=== PATIENT | male | born 1960 | race Caucasian/White ===

== ENCOUNTER 2018-01-27 08:53 | Inpatient (IN) | payer OTHER ==
[~2018-01-27] VITALS: Ht 172.7 cm; Wt 111.6 kg
[~2018-01-27 08:53] MED LIST: MULT-506 PO
[2018-01-27] MEDS ORDERED: MoRPHine SULFATE 10 MG/ML CARP/VIAL IV STA (09:21)
[2018-01-27] MEDS ORDERED: ONDANSETRON INJ 2 MG/ML 2 ML VIAL IV STA (09:21)
[2018-01-27] MEDS ORDERED: SODIUM CHLORIDE 0.9% 1000ML 1,000 ML IV STA (09:21)
[2018-01-27] MEDS ORDERED: MoRPHine SULFATE 2 MG/ML CARP ONE (09:31)
[2018-01-27] MEDS ORDERED: MoRPHine SULFATE 4 MG/ML 1 ML CARP\\VIAL ONE (09:32)
[2018-01-27 09:37] LABS: BASO % 0.1 %; BASO ABS # 0.02 K/uL (0-0.2); EOS % 1.2 %; EOS ABS # 0.18 K/uL (0-0.5); HEMATOCRIT 43.6 % (42-52); HEMOGLOBIN 15.4 g/dL (14.0-18.0); IG# 0.06 K/uL (0.00-0.02); LYMPH % 16.3 %; LYMPH ABS # 2.52 K/uL (1.2-3.4); MEAN CELL VOLUME 90.1 fL (80-100); MEAN CORPUSCULAR HEMOGLOBIN 31.8 pg (25-34); MEAN CORPUSCULAR HGB CONC 35.3 g/dl (32-36); MEAN PLATELET VOLUME 9.1 fL (7.4-10.4); MONO % 10.1 %; MONO ABS # 1.56 K/uL (0.11-0.59); NEUT % 71.9 %; NEUT ABS # 11.12 K/uL (1.4-6.5); PLATELET COUNT 254 K/uL (130-400); RED CELL DISTRIBUTION WIDTH CV 13.1 % (11.5-14.5); RED CELL DISTRIBUTION WIDTH SD 43.2 fL (36.4-46.3); WHITE BLOOD COUNT 15.46 K/uL (4.8-10.8)
[2018-01-27 10:02] LABS: ALBUMIN 3.5 gm/dl (3.4-5.0); CALCIUM 9.4 mg/dl (8.5-10.1); CREATININE 1.02 mg/dl (0.60-1.40); POTASSIUM 3.9 mmol/L (3.5-5.1)
[2018-01-27 10:04] LABS: TOTAL PROTEIN 7.9 gm/dl (6.4-8.2)
[2018-01-27] MEDS ORDERED: CEFTRIAXONE SOD INJ 1 GM ADDVIAL IV STA (10:56)
--- NOTE | 2018-01-27 11:34 | DIAGNOSTIC IMAGING REPORT ---
CT SCAN OF THE ABDOMEN AND PELVIS WITH IV CONTRAST CLINICAL HISTORY: Generalized abdominal pain. Urinary tract infection. COMPARISON STUDY: Abdominal CT dated 06/12/2016. TECHNIQUE: Following the IV administration of 116 cc of Optiray 320, CT scan of the abdomen and pelvis is performed from the lung bases to the proximal femora. Images are reviewed in the axial, sagittal, and coronal planes. IV contrast was administered without complication. A dose lowering technique was utilized adhering to the principles of ALARA. CT DOSE: 1024.97 mGycm FINDINGS: Lung bases: The heart is normal in size and without pericardial effusion. There is scarring versus atelectasis seen at both lung bases. No airspace consolidation or pleural effusion is identified. There is a tiny hiatal hernia. Liver: The contrast-enhanced liver is enlarged, measuring 19.9 cm in length. The liver demonstrates diffusely diminished attenuation suggesting mild steatosis. There is no intrahepatic biliary ductal dilatation. The hepatic veins and portal veins are patent. Gallbladder: Unremarkable. Spleen: Normal in size and attenuation. Pancreas: Unremarkable. Adrenal glands: Unremarkable. Kidneys: The contrast enhanced kidneys are normal in size and without hydronephrosis. The kidneys enhance symmetrically. Bilateral renal cysts measure up to 2.4 cm. Additional subcentimeter cortical hypodensities also likely represent cysts but are too small for definitive characterization. There is a staghorn calculus in the interpolar right kidney. This measures up to 2.9 cm in aggregate dimension. There is a circumaortic left renal vein. Mild urothelial thickening suggested in the renal pelvis bilaterally with surrounding peripelvic and perinephric inflammatory change. Abdominal vasculature: The abdominal aorta is normal in course and caliber noting mild to moderate atherosclerotic calcification. Bowel: There are postoperative changes from sigmoid colon resection with colocolonic anastomosis. A small bowel anastomosis is seen in the right lower quadrant with evidence of a right lower quadrant urostomy. No bowel obstruction is seen. There are scattered colonic diverticula without CT evidence of acute diverticulitis. The appendix is well-visualized and normal. Peritoneum: There is no intraperitoneal free air or abdominal ascites. There is a small fat-containing umbilical hernia. Lymphadenopathy: There is a 2.4 x 1.5 cm retrocaval lymph node seen on image #142. Additional prominent retroperitoneal nodes are identified. An aortocaval node on image #168 measures 10 mm in short axis. There is no upper abdominal, mesenteric, pelvic sidewall, or inguinal adenopathy. Pelvic viscera: The bladder and prostate are surgically absent. Surgical clips are noted in the pelvis. Skeletal structures: The skeletal structures are osteopenic. Mild spondylotic change is observed in the lumbar spine. No lytic or blastic lesions are seen. IMPRESSION: 1. There are postoperative changes from cystectomy and prostatectomy with a diverting right lower quadrant urostomy. 2. There is no hydronephrosis. 3. A staghorn calculus is identified in the right kidney. 4. Mild urothelial thickening is suggested in the renal pelvis bilaterally with surrounding peripelvic and perinephric stranding. The appearance suggests urinary tract infection. Clinical correlation will be required. 5. There is an enlarged retrocaval lymph node as above, which has modestly increased in size from 2016. Additional prominent retroperitoneal nodes are identified. These are pathologically indeterminant and may be reactive. Attention at follow-up is recommended. 6. Hepatomegaly and hepatic steatosis. 7. Additional findings as above. Electronically signed by: Antwan Vyas M.D. 01/27/2018 11:33 AM Dictated Date/Time: 01/27/2018 11:22 AM
--- NOTE | 2018-01-27 13:23 | Urology Consultation ---
History General Date of Service: Jan 27, 2018. Chief Complaint: back pain, stoma pain Primary Care Physician: No Doctor, Assigned Pt seen a urologist before?: Yes (Dr. Buddy Howell ) If yes, why?: bladder cancer History of Present Illness 57 yo [place] male with hx of bladder and colon cancer s/p colectomy and cystectomy presents to the ED with his with c/o back pain and stoma pain. The pt is deaf, and translates for him. Urostomy draining clear, yellow urine this afternoon. UA obtained from clean drainage bag replaced this morning shows pyuria, blood, and bacteria. Pt's denies fevers at home. He is afebrile on admission with a white count of 15.46. Cr is 1.02. CT showing a right partial staghorn calculus and perinephric stranding without hydronephrosis. Imaging Imaging: CT Laboratory Last 24 Hours Test 01/27/18 09:25 White Blood Count 15.46 K/uL Red Blood Count 4.84 M/uL Hemoglobin 15.4 g/dL Hematocrit 43.6 % Mean Corpuscular Volume 90.1 fL Mean Corpuscular Hemoglobin 31.8 pg Mean Corpuscular Hemoglobin Concent 35.3 g/dl Platelet Count 254 K/uL Mean Platelet Volume 9.1 fL Neutrophils (%) (Auto) 71.9 % Lymphocytes (%) (Auto) 16.3 % Monocytes (%) (Auto) 10.1 % Eosinophils (%) (Auto) 1.2 % Basophils (%) (Auto) 0.1 % Neutrophils # (Auto) 11.12 K/uL Lymphocytes # (Auto) 2.52 K/uL Monocytes # (Auto) 1.56 K/uL Eosinophils # (Auto) 0.18 K/uL Basophils # (Auto) 0.02 K/uL RDW Standard Deviation 43.2 fL RDW Coefficient of Variation 13.1 % Immature Granulocyte % (Auto) 0.4 % Immature Granulocyte # (Auto) 0.06 K/uL Urine Color YELLOW Urine Appearance CLOUDY Urine pH 7.0 Urine Specific [place] 1.010 Urine Protein 1+ Urine Glucose (UA) NEG Urine Ketones NEG Urine Occult Blood 3+ Urine Nitrite NEG Urine Bilirubin NEG Urine Urobilinogen NEG Urine Leukocyte Esterase LARGE Urine RBC 10-30 /hpf Urine WBC >30 /hpf Urine Epithelial Cells 5-10 /lpf Urine Bacteria 2+ Urine Hyaline Casts 1-5 /lpf Sodium Level 137 mmol/L Potassium Level 3.9 mmol/L Chloride Level 106 mmol/L Carbon Dioxide Level 24 mmol/L Anion Gap 7.0 mmol/L Blood Urea Nitrogen 14 mg/dl Creatinine 1.02 mg/dl Est Creatinine Clear Calc Drug Dose 95.7 ml/min Estimated GFR () 93.5 Estimated GFR (Non- 80.6 BUN/Creatinine Ratio 13.6 Random Glucose 111 mg/dl Calcium Level 9.4 mg/dl Total Bilirubin 0.8 mg/dl Direct Bilirubin 0.2 mg/dl Aspartate Amino Transf (AST/SGOT) 9 U/L Alanine Aminotransferase (ALT/SGPT) 19 U/L Alkaline Phosphatase 88 U/L Total Protein 7.9 gm/dl Albumin 3.5 gm/dl Lipase 71 U/L Past History cancer (bladder), cancer - colon, other (pt is deaf, sleep apnea) Past Surgical History: colectomy (total ), other (cystectomy ) Family History non-contributory Social History Hx Tobacco Use In Past Year?: No Smoking: other (current everyday smoker) Marital status: Housing status: lives with family Occupation status: employed Allergies Coded Allergies: Penicillins (Unverified Allergy, Intermediate, Itching, swelling, 01/27/18) Medications Home Medications: Home Meds and Scripts Medications Dose Route/Sig Max Daily Dose Days Date Category No Active Prescriptions or Reported Medications Rx Review of Systems Review of Systems Constitutional: No fever, No chills Eyes: No double vision Neurological: No dizzy Endocrine: No excessive thirst Gastrointestinal: No abdominal pain, No nausea, No vomiting Cardiovascular: No chest pain Respiratory: No shortness of breath Skin: No rash Musculoskeletal: + back pain Male : No blood in urine Physical Exam Vital Signs: Vital Signs Past 12 Hours Date Time Temp Pulse Resp B/P (MAP) Pulse Ox O2 Delivery O2 Flow Rate FiO2 01/27/18 11:01 67 18 130/80 98 Room Air 01/27/18 09:02 37.0 77 19 128/78 95 Room Air Physical Exam: General Appearance: no apparent distress Eyes: bilateral eyes normal inspection ENT: + pertinent finding (pt is deaf ) Neck: no JVD Respiratory/Chest: no respiratory distress, no accessory muscle use Cardiovascular: no JVD Gastrointestinal: Abdomen: pertinent finding (stoma is beefy red on appearance ) Extremities: normal inspection Neurologic/Psychiatric: alert, normal mood/affect, oriented x 3 Skin: normal color Assessment & Plan Assessment & Plan A/P: UTI, hx of bladder cancer, nephrolithiasis AFVSS. Pt to be admitted by the hospitalist service. Recommend he remain inpatient until culture sensitivities return so that he can be transitioned to the appropriate oral abx prior to d/c home. No urgent need for stone management at this time, but will need to discuss outpatient management as this can be a potential source for infection. Thanks for the consult. Will continue to follow along with primary service. The pt was seen and examined with Dr. Chaudhary this afternoon.
[2018-01-27 13:46] VITALS: O2SAT 99; Ht 172.7 cm; Wt 111.6 kg
[2018-01-27] MEDS ORDERED: HYDROmorphone INJ 0.5 MG/0.5 ML SYR IV ONE (14:15)
--- NOTE | 2018-01-27 14:27 | EMERGENCY ROOM VISIT NOTE ---
History Report prepared by Vivian: Harpreet Ross Under the Supervision of: Dr. Edgar Sanchez D.O. First contact with patient: 09:09 Chief Complaint: FLANK PAIN Stated Complaint: KIDNEY INFECTION - SORE STOMA AREA History of Present Illness The patient is completely deaf and there is a language barrier, therefore this HPI was acquired from his . The patient is a 57 year old male who presents to the Emergency Room with complaints of worsening right sided lower back pain and right lower abdominal pain that began Wednesday, 3 days ago. The patient states that he started to feel unwell on Wednesday, but his pain worsened significantly this morning. He had a difficult time describing his pain, but denies that anything improves/worsens his pain. He denies any associated vomiting, diarrhea, or cough. The notes that he was diagnosed with a Kidney Infection in November and that this pain feels similar to that previous episode. The patient's right lower abdominal pain is localized around his stoma bag. The stoma is in place due to a past colectomy and bladder removal secondary to cancer. The notes that they changed the stoma bag this morning at 0730. He denies any other headache, change in vision, fevers, chest pain, shortness of breath, nausea, vomiting, diarrhea, pain with urination, and melena. Source of History: patient, spouse/significant other Onset: 3 days ago Position: back (lower, right) Quality: other (Unable to describe) Timing: worsening Modifying Factors (Worsening): other (n/a) Modifying Factors (Relieving): other (n/a ) Associated Symptoms: + abdominal pain (RLQ pain) Review of Systems See HPI for pertinent positives & negatives. A total of 10 systems reviewed and were otherwise negative. Past Medical & Surgical Hx of Sleep Apnea Social History Smoking Status: Current Every Day Smoker Drug Use: none Marital Status: Housing Status: lives with significant other Occupation Status: employed Current/Historical Medications No Active Prescriptions or Reported Meds Allergies Coded Allergies: Penicillins (Unverified Allergy, Intermediate, Itching, swelling, 01/27/18) Physical Exam Vital Signs Date Time Temp Pulse Resp B/P (MAP) Pulse Ox O2 Delivery O2 Flow Rate FiO2 01/27/18 13:46 99 Room Air 01/27/18 13:00 67 14 134/78 99 Room Air 01/27/18 11:01 67 18 130/80 98 Room Air 01/27/18 09:02 37.0 77 19 128/78 95 Room Air Physical Exam GENERAL: Sitting up in bed, alert, well appearing, well nourished, no distress, non-toxic EYE EXAM: normal conjunctiva. OROPHARYNX: no exudate, no erythema, lips, buccal mucosa, and tongue normal and mucous membranes are moist NECK: supple, no nuchal rigidity, no adenopathy, non-tender LUNGS: Clear to auscultation. Normal chest wall mechanics HEART: no murmurs, S1 normal and S2 normal ABDOMEN: abdomen soft, non-tender, normo-active bowel sounds, no masses, no rebound or guarding. There is a urostomy located in the right mid to lower quadrant, yellow urine is present in the bag. Urostomy is pink, well perfused, there is no surrounding discharge. BACK: Back is symmetrical on inspection and there is no deformity, no midline tenderness, no CVA tenderness. There is faint tenderness in the right mid to upper paraspinal region. SKIN: no rashes and no bruising UPPER EXTREMITIES: upper extremities are grossly normal. LOWER EXTREMITIES: No pitting edema. NEURO EXAM: Normal sensorium, cranial nerves II-XII grossly intact, normal speech, no gross weakness of arms, no gross weakness of legs. Medical Decision & Procedures ER Provider Diagnostic Interpretation: Radiology results as stated below per my review and the radiologist's interpretation: CT SCAN OF THE ABDOMEN AND PELVIS WITH IV CONTRAST CLINICAL HISTORY: Generalized abdominal pain. Urinary tract infection. COMPARISON STUDY: Abdominal CT dated 06/12/2016. TECHNIQUE: Following the IV administration of 116 cc of Optiray 320, CT scan of the abdomen and pelvis is performed from the lung bases to the proximal femora. Images are reviewed in the axial, sagittal, and coronal planes. IV contrast was administered without complication. A dose lowering technique was utilized adhering to the principles of ALARA. CT DOSE: 1024.97 mGycm FINDINGS: Lung bases: The heart is normal in size and without pericardial effusion. There is scarring versus atelectasis seen at both lung bases. No airspace consolidation or pleural effusion is identified. There is a tiny hiatal hernia. Liver: The contrast-enhanced liver is enlarged, measuring 19.9 cm in length. The liver demonstrates diffusely diminished attenuation suggesting mild steatosis. There is no intrahepatic biliary ductal dilatation. The hepatic veins and portal veins are patent. Gallbladder: Unremarkable. Spleen: Normal in size and attenuation. Pancreas: Unremarkable. Adrenal glands: Unremarkable. Kidneys: The contrast enhanced kidneys are normal in size and without hydronephrosis. The kidneys enhance symmetrically. Bilateral renal cysts measure up to 2.4 cm. Additional subcentimeter cortical hypodensities also likely represent cysts but are too small for definitive characterization. There is a staghorn calculus in the interpolar right kidney. This measures up to 2.9 cm in aggregate dimension. There is a circumaortic left renal vein. Mild urothelial thickening suggested in the renal pelvis bilaterally with surrounding peripelvic and perinephric inflammatory change. Abdominal vasculature: The abdominal aorta is normal in course and caliber noting mild to moderate atherosclerotic calcification. Bowel: There are postoperative changes from sigmoid colon resection with colocolonic anastomosis. A small bowel anastomosis is seen in the right lower quadrant with evidence of a right lower quadrant urostomy. No bowel obstruction is seen. There are scattered colonic diverticula without CT evidence of acute diverticulitis. The appendix is well-visualized and normal. Peritoneum: There is no intraperitoneal free air or abdominal ascites. There is a small fat-containing umbilical hernia. Lymphadenopathy: There is a 2.4 x 1.5 cm retrocaval lymph node seen on image #142. Additional prominent retroperitoneal nodes are identified. An aortocaval node on image #168 measures 10 mm in short axis. There is no upper abdominal, mesenteric, pelvic sidewall, or inguinal adenopathy. Pelvic viscera: The bladder and prostate are surgically absent. Surgical clips are noted in the pelvis. Skeletal structures: The skeletal structures are osteopenic. Mild spondylotic change is observed in the lumbar spine. No lytic or blastic lesions are seen. IMPRESSION: 1. There are postoperative changes from cystectomy and prostatectomy with a diverting right lower quadrant urostomy. 2. There is no hydronephrosis. 3. A staghorn calculus is identified in the right kidney. 4. Mild urothelial thickening is suggested in the renal pelvis bilaterally with surrounding peripelvic and perinephric stranding. The appearance suggests urinary tract infection. Clinical correlation will be required. 5. There is an enlarged retrocaval lymph node as above, which has modestly increased in size from 2016. Additional prominent retroperitoneal nodes are identified. These are pathologically indeterminant and may be reactive. Attention at follow-up is recommended. 6. Hepatomegaly and hepatic steatosis. 7. Additional findings as above. Electronically signed by: Antwan Vyas M.D. 01/27/2018 11:33 AM Dictated Date/Time: 01/27/2018 11:22 AM Laboratory Results 01/27/18 09:25 Red Blood Count 4.84, Mean Corpuscular Volume 90.1, Mean Corpuscular Hemoglobin 31.8, Mean Corpuscular Hemoglobin Concent 35.3, Mean Platelet Volume 9.1, Neutrophils (%) (Auto) 71.9, Lymphocytes (%) (Auto) 16.3, Monocytes (%) (Auto) 10.1, Eosinophils (%) (Auto) 1.2, Basophils (%) (Auto) 0.1, Neutrophils # (Auto ) 11.12, Lymphocytes # (Auto) 2.52, Monocytes # (Auto) 1.56, Eosinophils # (Auto ) 0.18, Basophils # (Auto) 0.02 01/27/18 09:25 Test 01/27/18 09:25 White Blood Count 15.46 K/uL (4.8-10.8) Red Blood Count 4.84 M/uL (4.7-6.1) Hemoglobin 15.4 g/dL (14.0-18.0) Hematocrit 43.6 % (42-52) Mean Corpuscular Volume 90.1 fL (80-100) Mean Corpuscular Hemoglobin 31.8 pg (25-34) Mean Corpuscular Hemoglobin Concent 35.3 g/dl (32-36) Platelet Count 254 K/uL (130-400) Mean Platelet Volume 9.1 fL (7.4-10.4) Neutrophils (%) (Auto) 71.9 % Lymphocytes (%) (Auto) 16.3 % Monocytes (%) (Auto) 10.1 % Eosinophils (%) (Auto) 1.2 % Basophils (%) (Auto) 0.1 % Neutrophils # (Auto) 11.12 K/uL (1.4-6.5) Lymphocytes # (Auto) 2.52 K/uL (1.2-3.4) Monocytes # (Auto) 1.56 K/uL (0.11-0.59) Eosinophils # (Auto) 0.18 K/uL (0-0.5) Basophils # (Auto) 0.02 K/uL (0-0.2) RDW Standard Deviation 43.2 fL (36.4-46.3) RDW Coefficient of Variation 13.1 % (11.5-14.5) Immature Granulocyte % (Auto) 0.4 % Immature Granulocyte # (Auto) 0.06 K/uL (0.00-0.02) Urine Color YELLOW Urine Appearance CLOUDY (CLEAR) Urine pH 7.0 (4.5-7.5) Urine Specific [place] 1.010 (1.000-1.030) Urine Protein 1+ (NEG) Urine Glucose (UA) NEG (NEG) Urine Ketones NEG (NEG) Urine Occult Blood 3+ (NEG) Urine Nitrite NEG (NEG) Urine Bilirubin NEG (NEG) Urine Urobilinogen NEG (NEG) Urine Leukocyte Esterase LARGE (NEG) Urine RBC 10-30 /hpf (0-4) Urine WBC >30 /hpf (0-5) Urine Epithelial Cells 5-10 /lpf (0-5) Urine Bacteria 2+ (NEG) Urine Hyaline Casts 1-5 /lpf (0-5) Anion Gap 7.0 mmol/L (3-11) Est Creatinine Clear Calc Drug Dose 95.7 ml/min Estimated GFR () 93.5 Estimated GFR (Non- 80.6 BUN/Creatinine Ratio 13.6 (10-20) Calcium Level 9.4 mg/dl (8.5-10.1) Total Bilirubin 0.8 mg/dl (0.2-1) Direct Bilirubin 0.2 mg/dl (0-0.2) Aspartate Amino Transf (AST/SGOT) 9 U/L (15-37) Alanine Aminotransferase (ALT/SGPT) 19 U/L (12-78) Alkaline Phosphatase 88 U/L (45-117) Total Protein 7.9 gm/dl (6.4-8.2) Albumin 3.5 gm/dl (3.4-5.0) Lipase 71 U/L (73-393) Laboratory results per my review. Medications Administered Medications (Trade) Dose Ordered Sig/Olaf Route Start Time Stop Time Status Last Admin Dose Admin Sodium Chloride 1,000 ml @ 999 mls/hr Q1H1M STAT IV 01/27/18 09:21 01/27/18 10:21 DC 01/27/18 09:34 999 MLS/HR Ondansetron HCl (Zofran Inj) 4 mg NOW STAT IV 01/27/18 09:21 01/27/18 09:23 DC 01/27/18 09:34 4 MG Morphine Sulfate (MoRPHine SULFATE INJ) 2 mg STK-MED ONCE .ROUTE 01/27/18 09:31 01/27/18 09:32 DC 01/27/18 09:35 2 MG Morphine Sulfate (MoRPHine SULFATE INJ) 4 mg STK-MED ONCE .ROUTE 01/27/18 09:32 01/27/18 09:33 DC 01/27/18 09:35 4 MG Ceftriaxone Sodium (Rocephin Inj) 1 gm NOW STAT IV 01/27/18 10:56 01/27/18 10:57 DC 01/27/18 11:25 1 GM ED Course ED COURSE: Vital signs were reviewed and showed normal vitals. The patients medical record was reviewed The above diagnostic studies were performed and reviewed. ED treatments and interventions as stated above. 0913: The patient was evaluated in room B8. A complete history and physical examination was performed. 0921: Ordered Zofran 4 mg IV, Morphine Sulfate 6 mg IV, Sodium Chloride 1000 mL @ 999 mL/hr IV. 0931: Ordered Morphine Sulfate 4 mg IV. 1056: Ordered Rocephin 1 gm IV. 1212: I discussed the case with Dr. Savannah Parry - Urology. She states that she will evaluate the case and call me back. 1218: I discussed the case with Dr. Chaudhary - Urology. He will come to the department to evaluate the patient. 1306: Dr. Chaudhary stopped by and informed me that they will admit the patient. 1317: Upon reevaluation, the patient is resting in bed.I discussed my findings with the patient and his , and they understands and agrees with the treatment plan. Based on the patients age, coexisting illnesses, exam and lab findings the decision to treat as an inpatient was made. The patient remained stable while under my care. The patient will be evaluated for further management. Medical Decision Differential diagnoses includes but is not limited to gastritis, peptic ulcer disease, GERD, gallbladder disease, pancreatitis, small bowel obstruction, acute coronary syndrome, pericarditis, ischemic bowel, irritable bowel disease, irritable bowel syndrome, appendicitis, diverticulitis, malignancy, hernia, urinary tract infection, torsion, perforation, trauma, infectious. Patient is a 57-year-old male with a previous history of bladder resection with urostomy in the right lower quadrant that presents to ER for back/flank pain. Has been feeling hot and cold. He does have a leukocytosis of 16,000. UA is infected. CT shows bilateral pyelonephritis. Patient was evaluated by nephrology at bedside. He was given IV antibiotics and fluids. He was given multiple doses of IV narcotics. He was admitted to internal medicine for further workup of his bilateral pyelonephritis. Medication Reconcilliation Current Medication List: was personally reviewed by me Blood Pressure Screening Patient's blood pressure: Normal blood pressure Consults Time Called: 1209 Consulting Physician: Dr. Savannah Bernabe Returned Call: [phone] I discussed the case with Dr. Savannah Bernabe. She states that she will evaluate the case and call me back. Additional Consults: Time Called: 1218 Consulted Physician: Dr. Jet Bernabe Returned Call: [phone] Additional Comments: I discussed the case with Dr. Jet Bernabe. He will come to the department to evaluate the patient. Impression Primary Impression: Pyelonephritis Scribe Attestation The scribe's documentation has been prepared under my direction and personally reviewed by me in its entirety. I confirm that the note above accurately reflects all work, treatment, procedures, and medical decision making performed by me. Departure Information Dispostion Being Evaluated By Hospitalist (urology) Prescriptions No Active Prescriptions or Reported Meds Referrals No Doctor, Assigned (PCP) Patient Instructions My [facility]
[2018-01-27] MEDS ORDERED: MoRPHine SULFATE 4 MG/ML 1 ML CARP\\VIAL IV PRN (14:30)
[2018-01-27] MEDS ORDERED: ONDANSETRON INJ 2 MG/ML 2 ML VIAL IV PRN (14:30)
--- NOTE | 2018-01-27 14:43 | History and Physical ---
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 He was treated with intavesical chemotherapy and tranurethral resection of th bladder. He is deaf at baseline and his communicates for him. Pt has c/o right sided back pain and stoma pain which began yesterday. He denies any fever, but notes he has been chilled for the past few days. He has been tolerating po intake well, no decrease in fluids. UA obtained from new clean stoma bag indicates pyuria, blood and bacteria. He was started on ceftriaxone in the ER. Currently afebrile with stable vitals signs. CT showing a right partial staghorn calculus and perinephric stranding without hydronephrosis. Past Medical/Surgical History Medical Problems: (1) Adenocarcinoma of bladder (2) BPH (benign prostatic hyperplasia) (3) Colon cancer (4) Leukocytosis (5) Nephrolithiasis Surgical Problems: (1) S/P colectomy Family History FH: CAD (coronary artery disease) FATHER, Onset:60 years & older No Family History of: FH: cancer Social History Smoking Status: Current Every Day Smoker Smokeless Tobacco Use: No Drug Use: none Marital Status: Housing status: lives with family Occupational Status: employed Allergies Coded Allergies: Penicillins (Unverified Allergy, Intermediate, Itching, swelling, 01/27/18) Home Medications Scheduled Ciprofloxacin Hcl (Cipro), 1 TAB PO BID Review of Systems Constitutional: + chills, + sweats, No fever, No fatigue Eyes: No redness, No diplopia ENT: No nasal symptoms, No sore throat Respiratory: No cough, No sputum, No wheezing, No shortness of breath Cardiovascular: No chest pain, No edema, No palpitations Abdomen: No pain, No nausea, No vomiting, No diarrhea, No constipation Musculoskeletal: No joint pain, No swelling, No calf pain Genitourinary - Male: + problem reported (slightly dark urine outs in past day , no blood, change bag surrounding stoma every 4-5 days. ), No hematuria Neurologic: No numbness/tingling Psychiatric: No depression symptoms, No anxiety Endocrine: No fatigue Integumentary: No rash, No itch Physical Exam Vital Signs Date Time Temp Pulse Resp B/P (MAP) Pulse Ox O2 Delivery O2 Flow Rate FiO2 01/27/18 13:46 99 Room Air 01/27/18 13:00 67 14 134/78 99 Room Air 01/27/18 11:01 67 18 130/80 98 Room Air 01/27/18 09:02 37.0 77 19 128/78 95 Room Air General Appearance: WD/WN, no apparent distress Head: normocephalic, atraumatic Eyes: PERRL, EOMI ENT: hearing grossly normal, pharynx normal Neck: supple, no JVD Respiratory/Chest: lungs clear, no respiratory distress, no accessory muscle use, + pertinent finding (on room air) Cardiovascular: regular rate, rhythm, no murmur, normal peripheral pulses Abdomen/GI: normal bowel sounds, non tender, soft, + pertinent finding (+ RLQ stoma red, no surrounding erythema, + slightly cloudy urine in bag, yellow.) Back: + right CVA tenderness Extremities/Musculoskelatal: no calf tenderness, no pedal edema Neurologic/Psych: alert, normal mood/affect, oriented x 3 Skin: normal color, warm/dry Diagnostics Laboratory Results Results Past 24 Hours Test 01/27/18 09:25 Range/Units White Blood Count 15.46 4.8-10.8 K/uL Red Blood Count 4.84 4.7-6.1 M/uL Hemoglobin 15.4 14.0-18.0 g/dL Hematocrit 43.6 42-52 % Mean Corpuscular Volume 90.1 80-100 fL Mean Corpuscular Hemoglobin 31.8 25-34 pg Mean Corpuscular Hemoglobin Concent 35.3 32-36 g/dl Platelet Count 254 130-400 K/uL Mean Platelet Volume 9.1 7.4-10.4 fL Neutrophils (%) (Auto) 71.9 % Lymphocytes (%) (Auto) 16.3 % Monocytes (%) (Auto) 10.1 % Eosinophils (%) (Auto) 1.2 % Basophils (%) (Auto) 0.1 % Neutrophils # (Auto) 11.12 1.4-6.5 K/uL Lymphocytes # (Auto) 2.52 1.2-3.4 K/uL Monocytes # (Auto) 1.56 0.11-0.59 K/uL Eosinophils # (Auto) 0.18 0-0.5 K/uL Basophils # (Auto) 0.02 0-0.2 K/uL RDW Standard Deviation 43.2 36.4-46.3 fL RDW Coefficient of Variation 13.1 11.5-14.5 % Immature Granulocyte % (Auto) 0.4 % Immature Granulocyte # (Auto) 0.06 0.00-0.02 K/uL Urine Color YELLOW Urine Appearance CLOUDY CLEAR Urine pH 7.0 4.5-7.5 Urine Specific [place] 1.010 1.000-1.030 Urine Protein 1+ NEG Urine Glucose (UA) NEG NEG Urine Ketones NEG NEG Urine Occult Blood 3+ NEG Urine Nitrite NEG NEG Urine Bilirubin NEG NEG Urine Urobilinogen NEG NEG Urine Leukocyte Esterase LARGE NEG Urine RBC 10-30 0-4 /hpf Urine WBC >30 0-5 /hpf Urine Epithelial Cells 5-10 0-5 /lpf Urine Bacteria 2+ NEG Urine Hyaline Casts 1-5 0-5 /lpf Sodium Level 137 136-145 mmol/L Potassium Level 3.9 3.5-5.1 mmol/L Chloride Level 106 98-107 mmol/L Carbon Dioxide Level 24 21-32 mmol/L Anion Gap 7.0 3-11 mmol/L Blood Urea Nitrogen 14 7-18 mg/dl Creatinine 1.02 0.60-1.40 mg/dl Est Creatinine Clear Calc Drug Dose 95.7 ml/min Estimated GFR () 93.5 Estimated GFR (Non- 80.6 BUN/Creatinine Ratio 13.6 10-20 Random Glucose 111 70-99 mg/dl Calcium Level 9.4 8.5-10.1 mg/dl Total Bilirubin 0.8 0.2-1 mg/dl Direct Bilirubin 0.2 0-0.2 mg/dl Aspartate Amino Transf (AST/SGOT) 9 15-37 U/L Alanine Aminotransferase (ALT/SGPT) 19 12-78 U/L Alkaline Phosphatase 88 45-117 U/L Total Protein 7.9 6.4-8.2 gm/dl Albumin 3.5 3.4-5.0 gm/dl Lipase 71 73-393 U/L Microbiology Results 01/27/18 Urine Culture, Received Pending Diagnostic Radiology CT SCAN OF THE ABDOMEN AND PELVIS WITH IV CONTRAST IMPRESSION: 1. There are postoperative changes from cystectomy and prostatectomy with a diverting right lower quadrant urostomy. 2. There is no hydronephrosis. 3. A staghorn calculus is identified in the right kidney. 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 He was treated with intavesical chemotherapy and tranurethral resection of the bladder. Pt has c/o right sided back pain and stoma pain which began yesterday. He denies any fever, but notes he has been chilled for the past few days. He has been tolerating po intake well, no decrease in fluids. UTI Staghorn Calculus - UA obtained from new clean stoma bag indicates pyuria, blood and bacteria. Await UCx. - started on ceftriaxone in the ER, continue for now - IVFs at 150 mL/hr - Pain control with IV morphine 4 mg Q3H for breakthrough pain, will order oxycodone 5 mg PO Q4 H prn - Currently afebrile with stable vitals signs. - CT showing a right partial staghorn calculus and perinephric stranding without hydronephrosis. - Urology on board Chronic Tobacco Use - Cessation encouraged - Will provide nicotine patch since smokes 1ppd DVT ppx: teds, scds, ambulatory CODE STATUS: DNR Disposition: From home, lives with Supervising Note Dr. Hart I performed a history and physical examination on the patient. I reviewed above note and agree with it. I discussed plan with APC and patient. During my face to face encounter with the patient, I answered all of the patient's questions. Patient will continue on rocephin and IVF. Urology has been consulted. Advanced Directives Existing Living Will: Yes Existing Power of Hotel Server: No Resuscitation Status VTE Prophylaxis Will order VTE Prophylaxis: Yes Reason for no VTE drug order: Treatment not indicated
[2018-01-27 16:15] VITALS: BP 138/83; PULSE 74; TEMP 36.6; O2SAT 93
[2018-01-27] MEDS: SODIUM CHLORIDE 0.9% 1000ML 1,000 ML IV SCH ×2 (17:11→20:54)
[2018-01-27] MEDS: NICOTINE 14 MG/24 HR TDSY TD SCH (17:12)
[2018-01-27] MEDS: OXYCODONE HCL IR 5 MG TAB (IMMEDIATE RELEASE) PO PRN (18:10)
[2018-01-27 23:15] VITALS: BP 133/77; PULSE 72; TEMP 37.4; O2SAT 93
[2018-01-28] MEDS: OXYCODONE HCL IR 5 MG TAB (IMMEDIATE RELEASE) PO PRN (00:13)
[2018-01-28] MEDS: SODIUM CHLORIDE 0.9% 1000ML 1,000 ML IV SCH ×4 (03:24→23:44)
[2018-01-28 07:35] VITALS: BP 160/88; PULSE 76; TEMP 38.4; O2SAT 90
[2018-01-28] MEDS: ACETAMINOPHEN 325 MG TAB PO PRN ×2 (07:40→23:44)
[2018-01-28] MEDS: NICOTINE 14 MG/24 HR TDSY TD SCH (07:42)
[2018-01-28 08:15] LABS: BASO % 0.3 %; BASO ABS # 0.03 K/uL (0-0.2); EOS % 2.3 %; EOS ABS # 0.27 K/uL (0-0.5); HEMATOCRIT 42.1 % (42-52); HEMOGLOBIN 13.9 g/dL (14.0-18.0); IG# 0.05 K/uL (0.00-0.02); LYMPH % 17.5 %; LYMPH ABS # 2.07 K/uL (1.2-3.4); MEAN CELL VOLUME 90.7 fL (80-100); MEAN PLATELET VOLUME 9.5 fL (7.4-10.4); MONO % 11.7 %; MONO ABS # 1.38 K/uL (0.11-0.59); NEUT % 67.8 %; NEUT ABS # 8.04 K/uL (1.4-6.5); PLATELET COUNT 233 K/uL (130-400); RED CELL DISTRIBUTION WIDTH CV 13.2 % (11.5-14.5); RED CELL DISTRIBUTION WIDTH SD 43.3 fL (36.4-46.3); WHITE BLOOD COUNT 11.84 K/uL (4.8-10.8)
[2018-01-28 08:41] LABS: CALCIUM 8.5 mg/dl (8.5-10.1); CREATININE 0.95 mg/dl (0.60-1.40); POTASSIUM 4.1 mmol/L (3.5-5.1)
[2018-01-28 09:10] VITALS: TEMP 37.7
--- NOTE | 2018-01-28 09:31 | Progress Note ---
Subjective Date of Service: Jan 28, 2018. Subjective Pt evaluation today including: conversation w/ patient, chart review, lab review 57 yo male admitted with UTI, possible pyelonephritis. Pt much more alert this morning. Stating he wants to go home and wants to take off the SCDs. Noted to have a fever of 38.4 this morning. Improved to 37.7 after receiving Tylenol. UC&S growing gram negative bacilli. White count has improved to 11.84 from 15.46 this morning. Pt reports his back pain has improved. Pain at ostomy site improved as well. Urostomy draining clear, yellow urine. Problem List Medical Problems: (1) Pyelonephritis Status: Acute Review of Systems Constitutional: + fever, No chills Respiratory: No shortness of breath Cardiac: No chest pain Abdomen: No pain, No nausea, No vomiting Male : No hematuria Heme: No abnormal bleeding/bruising Objective Vital Signs Date Time Temp Pulse Resp B/P (MAP) Pulse Ox O2 Delivery O2 Flow Rate FiO2 01/28/18 09:10 37.7 01/28/18 07:35 38.4 76 18 160/88 (112) 90 Room Air 01/28/18 07:30 Room Air 01/28/18 00:19 Room Air 01/27/18 23:15 37.4 72 16 133/77 (95) 93 Room Air 01/27/18 19:30 Room Air 01/27/18 16:15 93 Room Air 01/27/18 16:15 36.6 74 18 138/83 (101) 93 Room Air 01/27/18 15:50 62 20 134/73 95 Room Air 01/27/18 14:37 77 20 141/83 93 Room Air 01/27/18 13:46 99 Room Air 01/27/18 13:00 67 14 134/78 99 Room Air 01/27/18 11:01 67 18 130/80 98 Room Air Physical Exam General Appearance: no apparent distress Eyes: normal inspection ENT: hearing grossly normal Neck: no JVD Respiratory/Chest: no respiratory distress, no accessory muscle use Cardiovascular: no JVD Abdomen: + pertinent finding (ostomy is beefy red ) Extremities: normal inspection Neurologic/Psychiatric: alert, normal mood/affect, oriented x 3 Skin: normal color Laboratory Results Last 24 Hours Test 01/27/18 09:25 01/28/18 07:48 White Blood Count 15.46 K/uL 11.84 K/uL Red Blood Count 4.84 M/uL 4.64 M/uL Hemoglobin 15.4 g/dL 13.9 g/dL Hematocrit 43.6 % 42.1 % Mean Corpuscular Volume 90.1 fL 90.7 fL Mean Corpuscular Hemoglobin 31.8 pg 30.0 pg Mean Corpuscular Hemoglobin Concent 35.3 g/dl 33.0 g/dl Platelet Count 254 K/uL 233 K/uL Mean Platelet Volume 9.1 fL 9.5 fL Neutrophils (%) (Auto) 71.9 % 67.8 % Lymphocytes (%) (Auto) 16.3 % 17.5 % Monocytes (%) (Auto) 10.1 % 11.7 % Eosinophils (%) (Auto) 1.2 % 2.3 % Basophils (%) (Auto) 0.1 % 0.3 % Neutrophils # (Auto) 11.12 K/uL 8.04 K/uL Lymphocytes # (Auto) 2.52 K/uL 2.07 K/uL Monocytes # (Auto) 1.56 K/uL 1.38 K/uL Eosinophils # (Auto) 0.18 K/uL 0.27 K/uL Basophils # (Auto) 0.02 K/uL 0.03 K/uL RDW Standard Deviation 43.2 fL 43.3 fL RDW Coefficient of Variation 13.1 % 13.2 % Immature Granulocyte % (Auto) 0.4 % 0.4 % Immature Granulocyte # (Auto) 0.06 K/uL 0.05 K/uL Urine Color YELLOW Urine Appearance CLOUDY Urine pH 7.0 Urine Specific [place] 1.010 Urine Protein 1+ Urine Glucose (UA) NEG Urine Ketones NEG Urine Occult Blood 3+ Urine Nitrite NEG Urine Bilirubin NEG Urine Urobilinogen NEG Urine Leukocyte Esterase LARGE Urine RBC 10-30 /hpf Urine WBC >30 /hpf Urine Epithelial Cells 5-10 /lpf Urine Bacteria 2+ Urine Hyaline Casts 1-5 /lpf Sodium Level 137 mmol/L 134 mmol/L Potassium Level 3.9 mmol/L 4.1 mmol/L Chloride Level 106 mmol/L 104 mmol/L Carbon Dioxide Level 24 mmol/L 25 mmol/L Anion Gap 7.0 mmol/L 5.0 mmol/L Blood Urea Nitrogen 14 mg/dl 11 mg/dl Creatinine 1.02 mg/dl 0.95 mg/dl Est Creatinine Clear Calc Drug Dose 95.7 ml/min 102.7 ml/min Estimated GFR () 93.5 101.9 Estimated GFR (Non- 80.6 87.9 BUN/Creatinine Ratio 13.6 11.5 Random Glucose 111 mg/dl 84 mg/dl Calcium Level 9.4 mg/dl 8.5 mg/dl Total Bilirubin 0.8 mg/dl Direct Bilirubin 0.2 mg/dl Aspartate Amino Transf (AST/SGOT) 9 U/L Alanine Aminotransferase (ALT/SGPT) 19 U/L Alkaline Phosphatase 88 U/L Total Protein 7.9 gm/dl Albumin 3.5 gm/dl Lipase 71 U/L Assessment and Plan A/P: UTI, suspected pyelonephritis, right partial staghorn calculus I discussed with the pt and his this morning that I recommend he remain inpatient until culture sensitivities have returned and fevers improved. Pt verbalizes understanding. Continue IV abx pending culture sensitivities. Would then transition to 14 days of PO abx if sensitive. Right partial staghorn calculus is a potential nidus of infection. Will need to address management with Dr. Howell as and outpatient once infection has been cleared. Will continue to follow along with primary service. Continued [facility] stay due to: fever, other (pending urine culture results )
[2018-01-28] MEDS: CEFTRIAXONE SOD INJ 1 GM in DEXTROSE 5% ADD-VANTAGE 50ML 50 ML IV SCH (10:56)
[2018-01-28 15:01] VITALS: BP 163/93; PULSE 69; TEMP 37.3; O2SAT 94
[2018-01-28 15:55] VITALS: BP 173/84; PULSE 77; O2SAT 93
--- NOTE | 2018-01-28 22:16 | Progress Note ---
Subjective Date of Service: Jan 28, 2018. Subjective Pt evaluation today including: conversation w/ patient 57 yo male reports being pain free. no fever. Problem List Medical Problems: (1) Pyelonephritis Status: Acute Review of Systems Constitutional: No fever, No chills Eyes: No worsening of vision ENT: No hearing loss Abdomen: No see HPI, No pain Musculoskeletal: No joint pain Psychiatric: No depression symptoms Endo: No fatigue All Other Systems: Reviewed and Negative Objective Vital Signs Date Time Temp Pulse Resp B/P (MAP) Pulse Ox O2 Delivery O2 Flow Rate FiO2 01/28/18 16:10 Room Air 01/28/18 15:55 77 93 01/28/18 15:01 37.3 69 16 163/93 (116) 94 Room Air 01/28/18 09:10 37.7 01/28/18 07:35 38.4 76 18 160/88 (112) 90 Room Air 01/28/18 07:30 Room Air 01/28/18 00:19 Room Air 01/27/18 23:15 37.4 72 16 133/77 (95) 93 Room Air Physical Exam Comments: General Appearance: WD/WN, no apparent distress Head: normocephalic, atraumatic Eyes: PERRL, EOMI ENT: hearing grossly normal, pharynx normal Neck: supple, no JVD Respiratory/Chest: lungs clear, no respiratory distress, no accessory muscle use, + pertinent finding (on room air) Cardiovascular: regular rate, rhythm, no murmur, normal peripheral pulses Abdomen/GI: normal bowel sounds, non tender, soft, + pertinent finding (+ RLQ stoma red, no surrounding erythema, + slightly cloudy urine in bag, yellow.) Back: + right CVA tenderness Extremities/Musculoskelatal: no calf tenderness, no pedal edema Neurologic/Psych: alert, normal mood/affect, oriented x 3 Skin: normal color, warm/dry Laboratory Results Last 24 Hours Test 01/28/18 07:48 White Blood Count 11.84 K/uL Red Blood Count 4.64 M/uL Hemoglobin 13.9 g/dL Hematocrit 42.1 % Mean Corpuscular Volume 90.7 fL Mean Corpuscular Hemoglobin 30.0 pg Mean Corpuscular Hemoglobin Concent 33.0 g/dl Platelet Count 233 K/uL Mean Platelet Volume 9.5 fL Neutrophils (%) (Auto) 67.8 % Lymphocytes (%) (Auto) 17.5 % Monocytes (%) (Auto) 11.7 % Eosinophils (%) (Auto) 2.3 % Basophils (%) (Auto) 0.3 % Neutrophils # (Auto) 8.04 K/uL Lymphocytes # (Auto) 2.07 K/uL Monocytes # (Auto) 1.38 K/uL Eosinophils # (Auto) 0.27 K/uL Basophils # (Auto) 0.03 K/uL RDW Standard Deviation 43.3 fL RDW Coefficient of Variation 13.2 % Immature Granulocyte % (Auto) 0.4 % Immature Granulocyte # (Auto) 0.05 K/uL Sodium Level 134 mmol/L Potassium Level 4.1 mmol/L Chloride Level 104 mmol/L Carbon Dioxide Level 25 mmol/L Anion Gap 5.0 mmol/L Blood Urea Nitrogen 11 mg/dl Creatinine 0.95 mg/dl Est Creatinine Clear Calc Drug Dose 102.7 ml/min Estimated GFR () 101.9 Estimated GFR (Non- 87.9 BUN/Creatinine Ratio 11.5 Random Glucose 84 mg/dl Calcium Level 8.5 mg/dl Assessment and Plan This is a 57 yo M with PMHx BPH with urinary obstruction, hx of colon cancer stage T4 with 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 He was treated with intavesical chemotherapy and tranurethral resection of the bladder. Pt has c/o right sided back pain and stoma pain which began yesterday. He denies any fever, but notes he has been chilled for the past few days. He has been tolerating po intake well, no decrease in fluids. UTI Staghorn Calculus Patient is now pain free. Still awaiting culture - UA obtained from new clean stoma bag indicates pyuria, blood and bacteria. - continue ceftriaxone - IVFs at 150 mL/hr - Pain control with IV morphine 4 mg Q3H for breakthrough pain, will order oxycodone 5 mg PO Q4 H prn - Currently afebrile with stable vitals signs. - CT showing a right partial staghorn calculus and perinephric stranding without hydronephrosis. - Urology on board Chronic Tobacco Use - Cessation encouraged - Will provide nicotine patch since smokes 1ppd DVT ppx: teds, scds, ambulatory CODE STATUS: DNR Disposition: From home, lives with Continued [facility] stay due to: fever, other (pending urine culture results )
[2018-01-28 22:45] VITALS: BP 138/88; PULSE 75; TEMP 37.9; O2SAT 93
[2018-01-28 22:48] VITALS: TEMP 37.8
[2018-01-29 01:19] VITALS: TEMP 36.6
[2018-01-29] MEDS: SODIUM CHLORIDE 0.9% 1000ML 1,000 ML IV SCH ×2 (05:16→11:58)
[2018-01-29 06:21] LABS: BASO % 0.4 %; BASO ABS # 0.04 K/uL (0-0.2); EOS % 5.2 %; HEMATOCRIT 39.4 % (42-52); HEMOGLOBIN 13.5 g/dL (14.0-18.0); IG# 0.04 K/uL (0.00-0.02); LYMPH % 24.8 %; LYMPH ABS # 2.37 K/uL (1.2-3.4); MEAN CELL VOLUME 90.8 fL (80-100); MEAN CORPUSCULAR HEMOGLOBIN 31.1 pg (25-34); MEAN CORPUSCULAR HGB CONC 34.3 g/dl (32-36); MEAN PLATELET VOLUME 9.3 fL (7.4-10.4); MONO % 13.9 %; MONO ABS # 1.33 K/uL (0.11-0.59); NEUT % 55.3 %; NEUT ABS # 5.27 K/uL (1.4-6.5); PLATELET COUNT 250 K/uL (130-400); RED CELL DISTRIBUTION WIDTH SD 43.4 fL (36.4-46.3); WHITE BLOOD COUNT 9.55 K/uL (4.8-10.8)
[2018-01-29 06:59] LABS: CALCIUM 8.6 mg/dl (8.5-10.1); CREATININE 1.02 mg/dl (0.60-1.40)
[2018-01-29 07:23] VITALS: BP 157/90; PULSE 67; TEMP 37.4; O2SAT 95
[2018-01-29] MEDS: NICOTINE 14 MG/24 HR TDSY TD SCH (08:33)
--- NOTE | 2018-01-29 11:01 | Progress Note ---
Progress Note Date of Service Jan 29, 2018. Progress Note Patient is afebrile vital signs are stable Patient wants to go home Stoma from the ileal conduit is pink and healthy-appearing urine output is good urine is clear Urine culture growing out Klebsiella Assessment Urinary tract infection We will put patient on 10 days of an antibiotic the organism is sensitive to After discharge he can follow-up in our office
[2018-01-29] MEDS: CEFTRIAXONE SOD INJ 1 GM in DEXTROSE 5% ADD-VANTAGE 50ML 50 ML IV SCH (11:20)
--- NOTE | 2018-01-29 14:04 | Discharge Summary ---
Discharge Summary Date of Service Jan 29, 2018. 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 He was treated with intavesical chemotherapy and tranurethral resection of the bladder. Pt has c/o right sided back pain and stoma pain which began yesterday. He denies any fever, but notes he has been chilled for the past few days. He has been tolerating po intake well, no decrease in fluids. UTI Staghorn Calculus - UA obtained from new clean stoma bag indicates pyuria, blood and bacteria. Await UCx. - continue ceftriaxone - IVFs at 150 mL/hr - Pain control with IV morphine 4 mg Q3H for breakthrough pain, will order oxycodone 5 mg PO Q4 H prn - Currently afebrile with stable vitals signs. - CT showing a right partial staghorn calculus and perinephric stranding without hydronephrosis. - Urology on board Chronic Tobacco Use - Cessation encouraged - Will provide nicotine patch since smokes 1ppd DVT ppx: teds, scds, ambulatory CODE STATUS: DNR Disposition: From home, lives with This includes examination of the patient, discharge planning, medication reconciliation, and communication with other providers. Discharge Instructions Please refer to the electronic Patient Visit Report (Discharge Instructions) for additional information.
[2018-01-29] MEDS ORDERED: CIPR-255 PO (14:08)
--- NOTE | 2018-01-29 14:10 | Discharge Instructions ---
Discharge Instructions Date of Service Jan 29, 2018. Admission Reason for Admission: Leukocytosis; Neprolithiasis Discharge Discharge Diagnosis / Problem: UTI/ Kidney stone Discharge Goals Goal(s): Decrease discomfort, Improve function Activity Recommendations Activity Limitations: resume your previous activity . Instructions / Follow-Up Instructions / Follow-Up Follow up with Urology Dr. Crawford Schedule followup appointment in 1-2 weeks Continue ciprofloxacin for 7 more days. Current Hospital Diet Patient's current hospital diet: Regular Diet Discharge Diet Recommended Diet: Regular Diet Pending Studies Studies pending at discharge: no Medical Emergencies . Who to Call and When: Medical Emergencies: If at any time you feel your situation is an emergency, please call 911 immediately. . Non-Emergent Contact Non-Emergency issues call your: Primary Care Provider Call Non-Emergent contact if: you have any medication questions . . "Provider Documentation" section prepared by Tereso Hart. .
--- NOTE | 2018-01-29 14:12 | Discharge Summary ---
Discharge Summary Date of Service Jan 29, 2018. Discharge Summary Admission Date: Jan 27, 2018 at 14:33 Discharge Date: Jan 29, 2018 Discharge Disposition: Home Principal Diagnosis: Staghorn Calculous in Right Kidney Problems/Secondary Diagnoses: As noted below Medication Reconciliation New Medications: Ciprofloxacin Hcl (Cipro) 500 Mg Tab 1 TAB PO BID for 7 Days, #14 TAB Discharge Exam Physical Exam Comments: General Appearance: WD/WN, no apparent distress Head: normocephalic, atraumatic Eyes: PERRL, EOMI ENT: hearing grossly normal, pharynx normal Neck: supple, no JVD Respiratory/Chest: lungs clear, no respiratory distress, no accessory muscle use, + pertinent finding (on room air) Cardiovascular: regular rate, rhythm, no murmur, normal peripheral pulses Abdomen/GI: normal bowel sounds, non tender, soft, + pertinent finding (+ RLQ stoma red, no surrounding erythema, + slightly cloudy urine in bag, yellow.) Back: + right CVA tenderness Extremities/Musculoskelatal: no calf tenderness, no pedal edema Neurologic/Psych: alert, normal mood/affect, oriented x 3 Skin: normal color, warm/dry Review of Systems: Constitutional: No fever, No chills Eyes: No worsening of vision ENT: No hearing loss Respiratory: No cough, No sputum Cardiovascular: No chest pain Abdomen: No pain Musculoskeletal: No joint pain Neurologic: No memory loss Psychiatric: No depression symptoms Endocrine: No fatigue Hematologic / Lymphatic: No abnormal bleeding/bruising Integumentary: No rash Hospital Course This is a 57 yo M with PMHx BPH with urinary obstruction, hx of colon cancer stage T4 with 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 He was treated with intavesical chemotherapy and tranurethral resection of the bladder. Pt has c/o right sided back pain and stoma pain which began yesterday. He denies any fever, but notes he has been chilled for the past few days. He has been tolerating po intake well, no decrease in fluids. UTI Staghorn Calculus - UA obtained from new clean stoma bag indicates pyuria, blood and bacteria. - continue ceftriaxone while culture was pending - IVFs at 150 mL/hr was used during hospital stay - Pain controled with IV morphine 4 mg Q3H for breakthrough pain, will order oxycodone 5 mg PO Q4 H prn - Currently afebrile with stable vitals signs. - CT showing a right partial staghorn calculus and perinephric stranding without hydronephrosis. - Urology on board -Culture showed klebsiella, sensitive to cipro. -will continue this to complete 10 day course and have patient f/u with urology as an outpatient. Chronic Tobacco Use - Cessation encouraged - Will provide nicotine patch since smokes 1ppd DVT ppx: teds, scds, ambulatory CODE STATUS: DNR Disposition: From home, lives with Total Time Spent: Greater than 30 minutes This includes examination of the patient, discharge planning, medication reconciliation, and communication with other providers. Discharge Instructions Please refer to the electronic Patient Visit Report (Discharge Instructions) for additional information. Follow-Up As noted in discharge instructions
[2018-01-29 15:34] VITALS: BP 157/90; PULSE 67; TEMP 37.4; O2SAT 95
== END 2018-01-29 16:00 | disposition home or self-care (01) | DRG 690 ==
LOC: C.EDB 08:54 → C.MSN 14:33 → ENRESERV 15:36
PROVIDERS: ADMIT Internal Medicine Sports Medicine; ATTEND Internal Medicine Sports Medicine
DX: N39.0 Urinary tract infection, site not specified (principal); B96.89 Other specified bacterial agents as the cause of diseases classified elsewhere; N20.0 Calculus of kidney; H91.93 Unspecified hearing loss, bilateral; F17.200 Nicotine dependence, unspecified, uncomplicated; Z66 Do not resuscitate; Z93.6 Other artificial openings of urinary tract status; Z87.440 Personal history of urinary (tract) infections; Z85.51 Personal history of malignant neoplasm of bladder; Z90.6 Acquired absence of other parts of urinary tract; Z85.038 Personal history of other malignant neoplasm of large intestine; Z90.49 Acquired absence of other specified parts of digestive tract; Z92.21 Personal history of antineoplastic chemotherapy; Z88.0 Allergy status to penicillin; Z82.49 Family history of ischemic heart disease and other diseases of the circulatory system